=== PATIENT | female | born 1935 | race Caucasian/White ===

== ENCOUNTER 2022-02-19 22:08 | Emergency (ER) | payer MEDICARE, BC ==
[~2022-02-19] VITALS: Ht 157.5 cm; Wt 59.1 kg
[2022-02-19 23:14] LABS: BASOPHILS # (AUTO) 0.1 X10'3 (0-0.2); HEMOGLOBIN 7.7 g/dl (12.0-16.0); MONOCYTES # (AUTO) 1.5 X10'3 (0-0.9); NEUTROPHILS % (AUTO) 81.6 % (42-75); WHITE BLOOD COUNT 18.8 X10'3 (4.5-11.0)
[2022-02-19 23:15] LABS: BASOPHILS % (AUTO) 0.5 % (0-1); EOSINOPHILS # (AUTO) 1.1 X10'3 (0-0.9); EOSINOPHILS % (AUTO) 5.6 % (0-6); HEMATOCRIT 23.4 % (35.0-45.0); LYMPHOCYTES # (AUTO) 0.8 X10'3 (1.1-4.8); LYMPHOCYTES % (AUTO) 4.5 % (21-51); MEAN CORPUSCULAR HEMOGLOBIN 27.8 PG (27.0-31.0); MEAN CORPUSCULAR VOLUME 84.4 FL (78-98); MEAN PLATELET VOLUME 6.9 FL (7.4-10.4); MONOCYTES % (AUTO) 7.8 % (2-12); NEUTROPHILS # (AUTO) 15.3 X10'3 (1.8-7.7); PLATELET COUNT 342 X10'3 (140-440); RED BLOOD COUNT 2.77 X10'6 (4.20-5.60); RED CELL DISTRIBUTION WIDTH 16.3 % (11.5-14.5)
[2022-02-19 23:30] LABS: ALANINE AMINOTRANSFERASE 20 U/L (12-78); ALBUMIN 2.7 G/DL (3.4-5.0); ALBUMIN/GLOBULIN RATIO 0.7 (1.1-1.5); ALKALINE PHOSPHATASE 144 IU/L (46-116); ANION GAP 9 (8-16); ASPARTATE AMINO TRANSFERASE 61 U/L (10-37); BILIRUBIN,TOTAL 0.3 MG/DL (0.1-1.0); BLOOD UREA NITROGEN 22 MG/DL (7-18); BUN/CREATININE RATIO 23.2 (6.6-38.0); CALCIUM 8.2 MG/DL (8.5-10.1); CHLORIDE 99 MMOL/L (99-107); CREATININE 0.95 MG/DL (0.40-0.90); GLUCOSE 101 MG/DL (70-104); POTASSIUM 4.2 MMOL/L (3.5-5.1); SODIUM 135 MMOL/L (135-145); TOTAL CARBON DIOXIDE 26.9 MMOL/L (24-32); TOTAL PROTEIN 6.8 G/DL (6.4-8.2); eGFR 55 ML/MIN
[2022-02-19 23:53] LABS: TOTAL CELLS COUNTED 100
[2022-02-19 23:54] LABS: ANISOCYTOSIS 1+; PLATELET ESTIMATE NORMAL
[2022-02-19 23:55] LABS: ELLIPTOCYTES FEW; POIKILOCYTOSIS FEW; TOXIC VACUOLATION 2+
[2022-02-20 00:04] LABS: CLARITY,URINE CLOUDY (Clear); COLOR,URINE YELLOW (Yellow); GLUCOSE, URINE NEGATIVE (Neg); KETONES,URINE NEGATIVE (Neg); LEUKOCYTE ESTERASE ,URINE TRACE (Neg); NITRITES, URINE NEGATIVE (Neg); OCCULT BLOOD,URINE SMALL (Neg); PROTEIN,URINE TRACE mg/dl (Neg)
[2022-02-20 00:13] LABS: UA COLLECTION TYPE STRAIGHT CATH
[2022-02-20 00:19] LABS: AMORPHOUS URATES 3+; BACTERIA,URINE 3+ /HPF (Neg); SQUAMOUS EPITHELIAL CELL,UR FEW /LPF (FEW)
[2022-02-20] MEDS ORDERED: CefTRIAXone/D5W-Rocephin 1gm 50 ML IV ONE (00:25)
[2022-02-20] MEDS ORDERED: normal saline 1000ML IV soln IVB ONE (00:25)
--- NOTE | 2022-02-20 00:39 | NUR ---
RENATA BAUTISTA SON IN LAW [phone] MEAGAN MICHELE DAUGHTER [phone]
[2022-02-20] MEDS ORDERED: iohexol 350MG/ML 100ml bottle IV ONE (00:42)
[2022-02-20] MEDS ORDERED: azithromycin/NS 500mg/250ml 250 ML IV ONE (05:55)
[2022-02-20] MEDS ORDERED: piperacillin/tazo 3.375gm/50ml 50 ML IV ONE (06:40)
[2022-02-20 07:06] VITALS: BP 135/47
== END 2022-02-20 11:54 ==
LOC: ER 22:10
DX: E04.1 Nontoxic single thyroid nodule (principal); Z20.822 Contact with and (suspected) exposure to COVID-19; R16.1 Splenomegaly, not elsewhere classified; R16.0 Hepatomegaly, not elsewhere classified; J18.9 Pneumonia, unspecified organism
CPT/HCPCS: 36415; 70491; 71045; 71260; 74177; 80053; 81001; 83605; 84145; 84484; 85007; 85025; 87040; 87077; 87088; 87186; 87635; 93005; 96365; 96367; 99285; C9803; J0456; J0696; J2543; J3490; J7030; Q9967; 81003